=== PATIENT | male | born 1955 | race Caucasian/White ===

== ENCOUNTER 2018-01-15 09:24 | Emergency (ER) | payer OTHER ==
--- NOTE | 2018-01-15 09:27 | ED Physician Documentation ---
Shoulder Injury/Pain - HISTORIAN Historian: patient - HPI Stated Complaint: left shoulder pain Chief Complaint: Shoulder Injury/ Pain Onset: yesterday Where: other (fishing) Severity: moderate Pain: worse Context: fall Associated Symptoms: weakness, unable to move shoulder, numbness - ROS CONST: no problems CVS/RESP: none GI/: denies: nausea, vomiting MS/SKIN/LYMPH: denies: neck pain, back pain, rash NEURO: none - PAST HX Past History: other Immunizations: UTD Allergies/Adverse Reactions: Allergies Allergy/AdvReac Type Severity Reaction Status Date / Time latex Allergy Intermediate Hives Verified 01/15/18 10:15 Home Medications: Ambulatory Orders Medication Instructions Recorded NK [NK] 01/15/18 - SOCIAL HX Smoking History: cigarettes Alcohol Use: occasionally Drug Use: none - FAMILY HX Family History: none - VITAL SIGNS Vital Signs: Vital Signs Temp Pulse Resp BP Pulse Ox 96.2 F L 91 H 17 141/88 98 01/15/18 09:25 01/15/18 09:25 01/15/18 09:25 01/15/18 09:25 01/15/18 09:25 - REVIEWED ASSESSMENT Nursing Assessment Reviewed: Yes Vitals Reviewed: Yes ED Results Lab/Radiology - Radiology Radiology Impressions: Examination: Plain film left shoulder History: INJURY TO LEFT SHOULDER AFTER FALL (Hx) Comparison exams: None provided Findings: 3 views of the left shoulder demonstrate normal cortical margins. No evidence for fracture or dislocation. Acromioclavicular joint degenerative spurring. No soft tissue abnormality Impression: Acromioclavicular joint degenerative spurring. No acute osseous process. Electronically signed on Jan 15, 2018 10:31:21 AM CDT by: Terrence Pugh - Orders Orders: ED Orders Category Date Time Status Sling to Affected Extremity 1T Care 01/15/18 10:39 Active SHOULDER 2 VIEWS OR MORE [RAD] Stat Exams 01/15/18 Taken Ketorolac Tromethamine [Toradol] Med 01/15/18 09:46 Discontinued 60 mg IM NOW ONE methylPREDNISolone ACETATE [Depo-Medrol] Med 01/15/18 09:47 Discontinued 80 mg IM NOW ONE Shoulder Injury Physical Exam - Physical Exam General Appearance: no acute distress, alert Shoulder: no dislocation, limited ROM, limited abduction, limited flexion, other (pain with active elevation approx 50 degrees. pain and feeling of weakness with active elevation ). No: soft-tissue tenderness, bony tenderness, swelling, deformity, clavicular deformity Upper Extremity: no injury below shoulder Neuro: sensation nml, motor nml, sensory deficit, motor deficit Vascular: no vascular compromise Skin: warm/dry, normal color Head/ENT: nml inspection Respiratory: chest non-tender, no ecchymosis, breath sounds nml, no resp. distress, heart sounds nml CVS: reg rate & rhythm, heart sounds normal, equal pulses, no murmur Abdomen: soft, no organomegaly Discharge Clincal Impression: Shoulder pain, left Qualifiers: Chronicity: acute Qualified Code(s): M25.512 - Pain in left shoulder Referrals: Chandrika Kim [employer] [employer] [Primary Care Provider] - 2 Days Additional Instructions: 1. Arm sling 2. Follow up with PCP for possible MRI 3. Tramodol for pain as needed 4. Tylenol or Ibuprofen for mild pain 5. Return to ER for increasing concerns Condition: Stable Disposition: 01 HOME, SELF-CARE Decision to Admit: NO Date of Decison to Admit: 01/15/18 Decision Time: 10:39
[2018-01-15] MEDS ORDERED: KETOROLAC TROMETHAMINE 60 MG/2 ML VIAL IM ONE (09:46)
[2018-01-15] MEDS ORDERED: methylPREDNISolone ACETATE 80 MG/ML VIAL IM ONE (09:47)
[2018-01-15 10:15] VITALS: BP 141/88
--- NOTE | 2018-01-15 20:02 | Diagnostic Imaging Report ---
Name: MACK DOMINIQUE ~~ ~~ : 53 ~~ Acc #: [id number]~~ DOS: Jan 15, 2018 10:14:40 AM CDT ~~ Mod: DX ~~ Desc: SHOULDER 1 of 1 JAMESGERRY RUBI~ [address] [address] ~ ~ ~ ~ Report Submission Date: Jan 15, 2018 10:31:21 AM CDT Patient ~ Study Name: MACK DOMINIQUE ~ Date: Jan 15, 2018 10:14:40 AM CDT ~ Modality Type: DX Gender: M ~ Description: SHOULDER : 53 ~ Institution: [facility] Physician: GERRY JAMES ~ ~ ~ Examination: Plain film left shoulder History: INJURY TO LEFT SHOULDER AFTER FALL (Hx) Comparison exams: None provided Findings: 3 views of the left shoulder demonstrate normal cortical margins.~ No evidence for fracture or dislocation. Acromioclavicular joint degenerative spurring. No soft tissue abnormality Impression: Acromioclavicular joint degenerative spurring. No acute osseous process. ~ Electronically signed on Jan 15, 2018 10:31:21 AM CDT by: Terrence ROBBINS
== END 2018-01-15 10:50 | disposition home or self-care (01) ==
LOC: ED 09:24
DX: M25.512 Pain in left shoulder (principal)
CPT/HCPCS: 73030; J1040; J1885; 96372; 99283